=== PATIENT | male | born 1970 | race Caucasian/White ===

== ENCOUNTER 2019-12-17 10:20 | Emergency (ER) | payer BC, OTHER ==
[~2019-12-17] VITALS: Ht 170.2 cm; Wt 68.0 kg
--- NOTE | 2019-12-17 10:28 | NUR ---
patient came in to the er c/o dizziness and left upper eyelid bruise s/p falling off a ladder x 6 days. On room air, breathing evenly and unlabored. Connected to the monitor and pulse ox. kept comfortable, will continue to monitor accordingly.
--- NOTE | 2019-12-17 10:50 | NUR ---
wheeled patient via [facility] for ct scan
--- NOTE | 2019-12-17 10:59 | NUR ---
patient came back from ct
--- NOTE | 2019-12-17 11:15 | NUR ---
[facility] [phone]
[2019-12-17 11:40] VITALS: BP 140/88
--- NOTE | 2019-12-17 11:42 | NUR ---
Patient discharged to home in stable condition. Written and verbal after care instructions given. Patient verbalizes understanding of instruction.
== END 2019-12-17 11:42 | disposition home or self-care (01) ==
LOC: ER 10:23
DX: S06.0X0A Concussion without loss of consciousness, initial encounter (principal); F17.200 Nicotine dependence, unspecified, uncomplicated; Z60.2 Problems related to living alone; W11.XXXA Fall on and from ladder, initial encounter; Y93.89 Activity, other specified; Y92.89 Other specified places as the place of occurrence of the external cause; Y99.8 Other external cause status
CPT/HCPCS: 70450-TC; 72125-TC